=== PATIENT | male | born 1975 | race Caucasian/White ===

== ENCOUNTER 2018-01-20 20:11 | Observation (INO) | payer OTHER ==
[~2018-01-20 20:11] MED LIST: Dexamethasone 20 MG/5 ML VIAL ONE; Lidocaine 1% PF 5 ML VIAL ONE; Ondansetron HCl/PF 4 MG/2 ML Vial ONE; PROPOFOL 200 MG/20 ML VIAL ONE; Succinylcholine Chloride 20 MG/ML 10 ml SYRINGE FS ONE
[2018-01-21] MEDS ORDERED: Sodium Chloride 0.9% 50 ML ONE (00:09)
[2018-01-21] MEDS ORDERED: Bacitracin Zinc Ointment 30 gm TUBE ONE (00:09)
[2018-01-21] MEDS ORDERED: Bupivacaine PF 0.5% 30 ML VIAL ONE (00:09)
[2018-01-21] MEDS ORDERED: HYDROmorphone 0.5 MG/0.5 ML SYRINGE ONE (00:10)
[2018-01-21] MEDS ORDERED: Fentanyl 100 MCG/2 ML VIAL ONE (00:10)
[2018-01-21] MEDS ORDERED: Ondansetron HCl/PF 4 MG/2 ML Vial IVP PRN ×2 (02:49→02:56)
[2018-01-21] MEDS ORDERED: Promethazine HCl 25 MG/ML VIAL IM PRN ×2 (02:49→02:56)
[2018-01-21] MEDS ORDERED: Promethazine HCl 25 MG/ML VIAL SLOW IVP PRN (02:49)
[2018-01-21] MEDS ORDERED: Promethazine HCl 25 MG/ML VIAL ONE (02:52)
[2018-01-21] MEDS ORDERED: Bisacodyl 10 MG SUPP PR PRN (02:56)
[2018-01-21] MEDS ORDERED: Milk Of Magnesia 30 ML UDCUP PO PRN (02:56)
[2018-01-21] MEDS ORDERED: traMADol HCl 50 MG TAB PO PRN (02:56)
[2018-01-21] MEDS ORDERED: HYDROcodone/Acetaminophen 5/325 mg Tablet PO PRN (02:56)
[2018-01-21] MEDS ORDERED: Communication Order-Pharmacy FS SCH (03:00)
[2018-01-21] MEDS ORDERED: TETANUS AND DIPHTHERIA TOX/PF 0.5 ML DISP.SYRIN IM SCH (04:00)
[2018-01-21 04:04] VITALS: BMI 22.4
[2018-01-21] MEDS: Vancomycin HCl 1.25 GM in Sodium Chloride 0.9% 250 ML 250 ML IVPB SCH ×3 (05:26→21:32)
[2018-01-21] MEDS: Ketorolac Tromethamine 30 MG/ML VIAL IVP SCH ×4 (05:27→23:53)
[2018-01-21] MEDS ORDERED: Vancomycin HCl 1 GM in Premix Bag 1 BAG IVPB SCH (09:00)
[2018-01-21] MEDS: Aspirin 81 mg Enteric Coated Tablet PO SCH ×2 (09:19→21:33)
--- NOTE | 2018-01-21 09:22 | RAD ---
INTRAOPERATIVE FLUOROSCOPY: History: Fixation of a finger injury. Exposure: 77 seconds. 1.16 mGy*cm^2. FINDINGS: Intraoperative fluoroscopy demonstrates multiple pins traversing the proximal phalanx of the index fi nger. IMPRESSION: Fluoroscopy as above. POS: [facility]
[2018-01-22] MEDS: Vancomycin HCl 1.25 GM in Sodium Chloride 0.9% 250 ML 250 ML IVPB SCH (05:31)
[2018-01-22] MEDS: Ketorolac Tromethamine 30 MG/ML VIAL IVP SCH (05:32)
[2018-01-22] MEDS: Aspirin 81 mg Enteric Coated Tablet PO SCH (08:03)
[2018-01-22 11:43] VITALS: BP 129/74; TEMP 98.1
--- NOTE | 2018-01-22 12:12 | OP ---
DATE OF SURGERY: 01/21/2018 PREOPERATIVE DIAGNOSES: 1. Left index finger grade 2 open fracture of proximal phalanx with extensor tendon injury. 2. Left long finger wound with extensor tendon involvement. 3. Left ring finger wound with extensor tendon involvement and open proximal interphalangeal joint. POSTOPERATIVE DIAGNOSES: 1. Left index finger grade 2 open fracture of proximal phalanx with extensor tendon injury. 2. Left long finger wound with extensor tendon involvement. 3. Left ring finger wound with extensor tendon involvement and open proximal interphalangeal joint. PROCEDURES PERFORMED: 1. Left index finger debridement of material associated open fracture. 2. Debridement of wound. 3. Open reduction and internal fixation, proximal phalanx fracture. 4. Extensor tendon repair, zone 4. 5. Intrinsic tendon repair, zone 4. 6. Wound closure, 5 cm. 7. C-arm supervision. At the left long finger: 1. Wound debridement. 2. Extensor tendon repair, zone 4, wound closure 2 cm complex. At the left ring finger: 1. Debridement of open proximal phalangeal joint (material associated open joint). 2. Repair of extensor tendon. 3. Wound closure 1 cm extensor repair here, zone 3, over the proximal phalangeal joint. SURGEON: Len Pimentel MD ANESTHESIA: Faviola Henley CRNA TOURNIQUET TIME: 51 minutes. ESTIMATED BLOOD LOSS: 20 mL. C-ARM USED: Yes. INDICATIONS: The patient had a spring contacted hand in his home outside [place], evacuated from [facility] because of open fracture and possible contamination. DESCRIPTION OF PROCEDURE: First, after obtaining appropriate consent, prepped and draped in the limb and do a time out as identified, the patient had all digits blocked with approximately 7 mL of 0.5% Marcaine. We discovered that the wounds were deep and so decided to also perform the procedure for h is ring and long finger as described above. All debridements involving the following steps. A. Excisional technique. B. Use of curet, tenotomy scissors, [place] blade, 11 blade knife, and the irrigation fluid. We performed all debridements listed above in a stepwise fashion. After we exposed the incisions, al l the incisions were extended 1 cm distal and 1.5 cm proximal. At the ring finger, this debridement involved a PIP joint where we can see an open joint injury through the extensor mechanism that was 5 mm long. We extended it enough to irrigate the joint and debride using the techniques listed above a t the ring finger. To the long finger, the injury and the incision was over the proximal phalanx. W e debrided the edges, and it was approximately a 2 mm wide wound, so we removed fat, but there was no violation of the inner nervous plane. We then turned attention to the primary fracture site where a n extended incision just proximal over the long finger, there was a moderate amount of debris to incl ude marked amount of flex, which appeared to be metallic type pain, embedded in the bone and bone fra gments with a comminution. Curet was used here as well as there had been at the other two sites, but this time it was over bone instead of soft tissues. Once we curetted the area, debrided with scisso rs and the other techniques as described above. Then, we irrigated all three wounds simultaneously u sing 3 liters of normal saline and Pulsavac x2 for the fracture and a liter of normal saline under Pu lsavac with antibiotics inside for each of the lesser digits involved, which were the long and the ri ng finger. After the fixation, we made sure there was no tendon caught in the bone, due to open reduction throug h the incision, because of the contamination, did not want to put plate and/or screw since , K-w ires were used. So, first we put a K-wire transversely across the base, but there was a comminuted f ragment and this was held and checked. Then, we placed 0.045 K-wire from proximal to distal and it w as in the frontal and sagittal plane in anatomic. There was no malrotation. Then, we added a 0.035 wire from the base of metacarpal distally as well. It was in the position and maintained the rotatio n and it was stable in full flexion to 90 degrees of PIP joint without movement. We then used a 4-0 Prolene to repair the intrinsic tendon on the ulnar side of the index finger using a 3 [id number] interrupted 4-0 Prolene. Next, the extensor tendon itself primarily had a 50% t ransverse laceration, this was repaired with the same 4-0 Prolene in a buried fashion and figure-of-e ight. We then turned attention to the long finger. The long finger wound where we repaired the extensor te ndon, which was a transverse and oblique laceration of the almost a centimeter long using a figure-of -eight 4-0 Prolene in interrupted fashion buried. Finally, the ring finger repaired the PIP joint lo ngitudinal tendon laceration, which is now approximately 7 mm with two 4-0 Prolene interrupted buried fashion. A [id number] technique also used. We released the tourniquet. We obtained hemostasi s. We closed each wound with interrupted 4-0 nylon in a simple pattern. First the index finger, the long finger and the ring finger. C-arm confirmed we maintained the position. There was no malrotat ion seen especially at the index to the long where there was the fixation required. The wires were c ut below the skin, bulky dressing was applied with bacitracin and Adaptic along with a bulky gauze dr essing between each webspace, and a splint was applied with the digits at -30 degrees of extension MP joint. All digits were pink, and the patient left the operating room without evidence of anesthetic or operative complication.
--- NOTE | 2018-01-23 04:59 | DIS ---
DATE OF ADMISSION: 01/20/2018 DATE OF DISCHARGE: 01/22/2018 ADMISSION DIAGNOSES: 1. Open grade II fracture base of proximal phalanx intraarticular, index finger with extensor tendon and intrinsic tendon laceration. 2. Open wound, 5 cm . 3. Open wound with tendon involvement of middle finger same hand and wound with tendon involve ment, open PIP joint ring finger. HOSPITAL COURSE: The patient was admitted and underwent immediate wound debridement at all sites, op en treatment of all open injury, fractures, and all tendon repairs at all of these three digits, and open reduction and internal fixation of the left index finger fracture. Remain in the hospital for I V antibiotics for 30 hours afterwards. We proved to be neurologically intact and was discharged. PLAN: Follow up with us in 5 days for a dressing change evaluation, was given oral antibiotics, Norc o for pain as well as Toradol. Diet is regular. Discharge to home.
== END 2018-01-22 14:41 | disposition home or self-care (01) ==
LOC: ERS 20:11 → SDC 01-21 01:46 → SURG A 01-21 03:47
PROVIDERS: ADMIT Orthopaedic Surgery Hand Surgery; ATTEND Orthopaedic Surgery Hand Surgery
PROC: 0PSV04Z Reposition Left Finger Phalanx with Internal Fixation Device, Open Approach (ICD-10-PCS; principal; 2018-01-21)
PROC: 0PBV0ZZ Excision of Left Finger Phalanx, Open Approach (ICD-10-PCS; 2018-01-21)
PROC: 0LQ80ZZ Repair Left Hand Tendon, Open Approach (ICD-10-PCS; 2018-01-21)
PROC: 0LQ80ZZ Repair Left Hand Tendon, Open Approach (ICD-10-PCS; 2018-01-21)
PROC: 0LQ80ZZ Repair Left Hand Tendon, Open Approach (ICD-10-PCS; 2018-01-21)
DX: S62.611B Displaced fracture of proximal phalanx of left index finger, initial encounter for open fracture (principal); S61.203A Unspecified open wound of left middle finger without damage to nail, initial encounter; S61.205A Unspecified open wound of left ring finger without damage to nail, initial encounter; S66.323A Laceration of extensor muscle, fascia and tendon of left middle finger at wrist and hand level, initial encounter; S66.325A Laceration of extensor muscle, fascia and tendon of left ring finger at wrist and hand level, initial encounter; S66.321A Laceration of extensor muscle, fascia and tendon of left index finger at wrist and hand level, initial encounter; S66.521A Laceration of intrinsic muscle, fascia and tendon of left index finger at wrist and hand level, initial encounter; W20.8XXA Other cause of strike by thrown, projected or falling object, initial encounter; Y99.0 Civilian activity done for income or pay
CPT/HCPCS: 36415; 76001; 80202; 96365; 96375; 96376; A4216; G0378; G0390; J1100; J1170; J1885; J2001; J2405; J2550; J2704; J3010; J3370; J3490; J7050; S0020